=== PATIENT | female | born 1975 | race African-American/Black ===

== ENCOUNTER 2022-03-25 23:30 | Emergency (ER) | payer OTHER ==
[~2022-03-25] VITALS: Ht 162.6 cm; Wt 120.2 kg
[2022-03-25 23:50] VITALS: BP 137/90
--- NOTE | 2022-03-25 23:53 | NUR ---
TO LOBBY A/W BED AMBULATORY
--- NOTE | 2022-03-26 00:43 | NUR ---
INFORMED BY ADMIT [employer] BLASTING THAT PT NOTIFIED HIM THAT SHE WAS LEAVING. PT LWBS AT THIS TIME.
== END 2022-03-26 00:43 | disposition left against medical advice (07) ==
LOC: MED 23:30
DX: K62.5 Hemorrhage of anus and rectum (principal); Z53.21 Procedure and treatment not carried out due to patient leaving prior to being seen by health care provider

== ENCOUNTER 2022-04-12 16:37 | Emergency (ER) | payer OTHER ==
[~2022-04-12] VITALS: Ht 162.6 cm; Wt 122.0 kg
[2022-04-12 17:04] VITALS: BP 152/95
--- NOTE | 2022-04-12 17:15 | NUR ---
PT ATTEMPTED TO CALL TO ROOM, NO RESPONSE
--- NOTE | 2022-04-12 17:15 | NUR ---
PATIENT LEFT WITHOUT BEING SEEN BY DR. NARAYAN. NO FURTHER CARE PROVIDED FOR PATIENT.
== END 2022-04-12 17:15 | disposition left against medical advice (07) ==
LOC: MED 16:37
DX: N93.9 Abnormal uterine and vaginal bleeding, unspecified (principal); Z53.21 Procedure and treatment not carried out due to patient leaving prior to being seen by health care provider